=== PATIENT | female | born 1990 | race Caucasian/White ===

== ENCOUNTER 2021-01-20 22:06 | Emergency (ER) | payer OTHER ==
[2021-01-20 23:02] VITALS: BP 148/80
[2021-01-21] MEDS ORDERED: HYDROcodone/ACETAMINOPHEN 5-325 MG TAB PO STA ×2 (00:50→02:10)
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
== END 2021-01-21 02:40 | disposition home or self-care (01) ==
LOC: EDBD → ED 22:06
DX: S46.811A Strain of other muscles, fascia and tendons at shoulder and upper arm level, right arm, initial encounter (principal); Z79.899 Other long term (current) drug therapy; V49.49XA Driver injured in collision with other motor vehicles in traffic accident, initial encounter; Y92.410 Unspecified street and highway as the place of occurrence of the external cause; Y93.89 Activity, other specified; Y99.8 Other external cause status
CPT/HCPCS: 99282

== ENCOUNTER 2021-06-15 15:50 | Emergency (ER) | payer OTHER ==
--- NOTE | 2021-06-15 16:06 | Emergency Department Report ---
- General Chief complaint: Skin/Abscess/Foreign Body Stated complaint: BOIL RIGHT LEG Time Seen by Provider: 06/15/21 16:02 Source: patient Mode of arrival: Ambulatory Limitations: No Limitations - History of Present Illness Initial comments: Patient is a 30-year-old female presents emergency room complaints of a possible spider bite to the right thigh that occurred yesterday. She states today when she woke up she noticed some swelling and redness. She denies any fever, drainage, chills, nausea, vomiting. No past medical history. No allergies medications. She states her last menstrual cycle was a week ago. She denies any recent shaving or any injury. - Related Data Previous Rx's Medication Instructions Recorded Last Taken Type Ketorolac [Toradol] 10 mg PO Q6H PRN #15 tablet 01/21/21 Unknown Rx methOCARBAMOL [Robaxin TAB] 750 mg PO Q8H PRN #14 tablet 01/21/21 Unknown Rx Sulfamethoxazole/Trimethoprim 1 each PO BID 7 Days #14 tablet 06/15/21 Unknown Rx [Bactrim DS TAB] Allergies Allergy/AdvReac Type Severity Reaction Status Date / Time No Known Allergies Allergy Verified 06/15/21 16:12 Abscess Boil HPI - HPI Chief Complaint: Skin/Abscess/Foreign Body Stated Complaint: BOIL RIGHT LEG Time Seen by Provider: 06/15/21 16:02 Home Medications: Previous Rx's Medication Instructions Recorded Last Taken Type Ketorolac [Toradol] 10 mg PO Q6H PRN #15 tablet 01/21/21 Unknown Rx methOCARBAMOL [Robaxin TAB] 750 mg PO Q8H PRN #14 tablet 01/21/21 Unknown Rx Sulfamethoxazole/Trimethoprim 1 each PO BID 7 Days #14 tablet 06/15/21 Unknown Rx [Bactrim DS TAB] Allergies/Adverse Reactions: Allergies Allergy/AdvReac Type Severity Reaction Status Date / Time No Known Allergies Allergy Verified 06/15/21 16:12 ED Review of Systems ROS: Stated complaint: BOIL RIGHT LEG Other details as noted in HPI Comment: All other systems reviewed and negative ED Past Medical Hx - Social History Smoking Status: Never Smoker - Medications Home Medications: Home Medications Medication Instructions Recorded Confirmed Last Taken Type Ketorolac [Toradol] 10 mg PO Q6H PRN #15 tablet 01/21/21 06/15/21 Unknown Rx methOCARBAMOL [Robaxin TAB] 750 mg PO Q8H PRN #14 tablet 01/21/21 06/15/21 Unknown Rx Sulfamethoxazole/Trimethoprim 1 each PO BID 7 Days #14 tablet 06/15/21 Unknown Rx [Bactrim DS TAB] ED Physical Exam - General Limitations: No Limitations General appearance: alert, in no apparent distress - Head Head exam: Present: atraumatic, normocephalic - Eye Eye exam: Present: normal appearance - ENT ENT exam: Present: mucous membranes moist - Neurological Exam Neurological exam: Present: alert, oriented X3 - Psychiatric Psychiatric exam: Present: normal affect, normal mood - Skin Skin exam: Present: warm, dry, other (1 cm area of induration present to the ri ght posterior thigh, small 0.5 cm pustule, no drainage, no necrosis, no blistering) ED Course Vital Signs 06/15/21 16:06 Temperature 97.9 F Pulse Rate 69 Respiratory 12 Rate Blood Pressure 113/64 Blood Pressure 113/64 [Left] O2 Sat by Pulse 100 Oximetry ED Medical Decision Making - Medical Decision Making Patient is a 30-year-old female presents emergency room complaints of a possible spider bite to the right thigh that occurred yesterday. She states today when she woke up she noticed some swelling and redness. She denies any fever, drainage, chills, nausea, vomiting. No past medical history. No allergies medications. She states her last menstrual cycle was a week ago. She denies any recent shaving or any injury. Vitals are stable. On exam:1 cm area of induration present to the right posterior thigh, small 0.5 cm pustule, no drainage, no necrosis, no blistering. Examination appears consistent with possible spider bite with mild surrounding cellulitis. There is no necrosis, skin destruction, or blistering at this time. Patient given prescription for medication. Advised patient Please take medication as prescribed. Please do warm compresses. Follow-up with your primary care doctor to have area reexamined. Return to emergency room immediately for any new or worsening symptoms Critical care attestation.: If time is entered above; I have spent that time in minutes in the direct care of this critically ill patient, excluding procedure time. ED Disposition Clinical Impression: Spider bite Qualifiers: Encounter type: initial encounter Injury intent: accidental or unintentional Qualified Code(s): T63.301A - Toxic effect of unspecified spider venom, accidental (unintentional), initial encounter Cellulitis Qualifiers: Site of cellulitis: extremity Site of cellulitis of extremity: lower extremity Laterality: right Qualified Code(s): L03.115 - Cellulitis of right lower limb Disposition: 01 HOME / SELF CARE / HOMELESS Is pt being admited?: No Does the pt Need Aspirin: No Condition: Stable Instructions: Cellulitis, Adult, Spider Bite, [id number] Additional Instructions: Please take medication as prescribed. Please do warm compresses. Follow-up with your primary care doctor to have area reexamined. Return to emergency room immediately for any new or worsening symptoms Prescriptions: Sulfamethoxazole/Trimethoprim [Bactrim DS TAB] 1 each PO BID 7 Days #14 tablet Referrals: your, primary care doctor [Other] - 2-3 Days Time of Disposition: 16:14 Print Language: [id number]
[2021-06-15 16:08] VITALS: BP 113/64
== END 2021-06-15 16:30 | disposition home or self-care (01) ==
LOC: ED 15:50
DX: T63.301A Toxic effect of unspecified spider venom, accidental (unintentional), initial encounter (principal); L03.115 Cellulitis of right lower limb; Y92.89 Other specified places as the place of occurrence of the external cause
CPT/HCPCS: 99282